=== PATIENT | female | born 1945 | race Caucasian/White ===

== ENCOUNTER 2022-03-21 07:08 | Emergency (ER) | payer MEDICARE, OTHER ==
[~2022-03-21] VITALS: Ht 165.1 cm; Wt 120.2 kg
[2022-03-21 08:14] LABS: Basophils # (auto) 0 10 ^3/uL (0-0.2); Basophils % (auto) 0.7 % (0.0-2.0); Eosinophils # (auto) 0.1 10 ^3/uL (0-0.8); Eosinophils % (auto) 3.5 % (0.0-7.0); Hemoglobin 16.1 g/dL (12.2-16.2); Lymphocytes # (auto) 1.1 10 ^3/uL (0.4-5.4); Lymphocytes % (auto) 36.4 % (10.0-50.0); Mean Corpuscular Hgb Conc. 34.1 g/dL (32.0-36.0); Monocytes # (auto) 0.4 10 ^3/uL (0-1.3); Monocytes % (auto) 14.3 % (0.0-12.0); Neutrophils # (auto) 1.3 10 ^3/uL (1.6-8.6); Neutrophils % (auto) 45.1 % (37.0-80.0); Nucleated Red Blood Cells % 0.3 %; Red Blood Cells 5.35 10^6/uL (4.0-5.20); Red Cell Distribution Width 13.9 % (11.8-14.3)
[2022-03-21 08:24] LABS: Urine Bacteria NONE SEEN /hpf (None Seen); Urine Blood Negative /uL (Negative); Urine Mucus FEW (None Seen); Urine Specific Gravity 1.025 (1.001-1.035); Urine WBC 14 /hpf (0 - 5)
[2022-03-21 08:28] LABS: Potassium 4.1 mmol/L (3.5-5.1)
[2022-03-21 08:36] LABS: Albumin 3.3 g/dL (3.4-5.0); BUN/Creatinine Ratio 17.6; Bilirubin, Total 0.6 mg/dL (0.2-1.0); Calcium 8.8 mg/dL (8.5-10.1)
[2022-03-21 10:08] VITALS: BP 128/77
== END 2022-03-21 11:18 | disposition left against medical advice (07) ==
LOC: ER 07:08
DX: R19.7 Diarrhea, unspecified (principal); Z53.21 Procedure and treatment not carried out due to patient leaving prior to being seen by health care provider
CPT/HCPCS: 36415; 80053; 81001; 85025

== ENCOUNTER 2023-11-07 06:00 | Inpatient (IN) | payer MEDICARE, OTHER ==
[2023-11-05 07:36] LABS: Urine Epithelial Cast None Seen /hpf (<5)
[2023-11-05 07:39] LABS: Basophils # (auto) 0.1 10 ^3/uL (0-0.2); Eosinophils # (auto) 0.3 10 ^3/uL (0-0.8); Eosinophils % (auto) 4.5 % (0.0-7.0); Hematocrit 48.4 % (36.0-46.0); Lymphocytes # (auto) 2.3 10 ^3/uL (0.4-5.4); Lymphocytes % (auto) 35.1 % (10.0-50.0); Mean Corpuscular Hemoglobin 30.4 pg (28.0-32.0); Mean Corpuscular Hgb Conc. 33.1 g/dL (32.0-36.0); Mean Corpuscular Volume 91.8 fL (80.0-100.0); Monocytes # (auto) 0.6 10 ^3/uL (0-1.3); Monocytes % (auto) 8.4 % (0.0-12.0); Neutrophils # (auto) 3.4 10 ^3/uL (1.6-8.6); Red Blood Cells 5.28 10^6/uL (4.0-5.20); Red Cell Distribution Width 14.1 % (11.8-14.3); White Blood Cell 6.7 10^3/uL (4.4-10.8)
[2023-11-05 07:43] LABS: Urine Bacteria FEW /hpf (None Seen); Urine Blood TRACE /uL (Negative); Urine Clarity Clear (Clear); Urine Color Yellow (Yellow); Urine Mucus FEW (None Seen); Urine Protein, UAD Negative (Negative); Urine Specific Gravity 1.024 (1.001-1.035); Urine Urobilinogen Normal (Negative); Urine WBC 4 /hpf (0 - 5)
[2023-11-05 08:09] LABS: INR 1.01 (0.9-1.15); Partial Thromboplastin Time 29.3 SEC (24.5-34.5); Prothrombin Time 10.6 sec (9.3-11.8)
[2023-11-05 08:20] LABS: Alanine Aminotransferase 10 U/L (7-40); Albumin 4.5 g/dL (3.2-4.8); Alkaline Phosphatase 92 U/L (46-116); Anion Gap 7 (5-15); Aspartate Aminotransferase 14 U/L (13-40); BUN/Creatinine Ratio 13.6 (10.0-20.0); Blood Urea Nitrogen 11 mg/dL (9-23); Calcium 9.6 mg/dL (8.5-10.1); Carbon Dioxide 27 mmol/L (20-30); Chloride 107 mmol/L (98-107); Glucose 92 mg/dL (74-106); Potassium 4.2 mmol/L (3.5-5.1); Sodium 141 mmol/L (136-145)
[2023-11-05 08:21] LABS: Bilirubin, Total 0.4 mg/dL (0.2-1.0); Total Protein 6.9 g/dL (5.7-8.2)
[~2023-11-07] VITALS: Ht 167.6 cm; Wt 203.1 kg
[~2023-11-07 06:00] MED LIST: ACET-1080 PO; DIPH1TAB30 PO; HYDR-4795 PO
[2023-11-07] MEDS ORDERED: TRANEXAMIC ACID 20 ML ONE ×2 (06:22→06:33)
[2023-11-07] MEDS ORDERED: LIDOCAINE W/ EPINEPHRINE 1% 20ML VIAL ONE (06:22)
[2023-11-07] MEDS ORDERED: LIDOCAINE 2% JELLY 11ml (GLYDO) ONE (06:28)
[2023-11-07] MEDS ORDERED: GABAPENTIN 400 MG CAP PO ONE (06:30)
[2023-11-07] MEDS ORDERED: oxyCODONE ER 20 MG TAB PO ONE (06:30)
[2023-11-07] MEDS ORDERED: ACETAMINOPHEN IV 1000 MG/100ML (10MG/ML) IV ONE (06:30)
[2023-11-07] MEDS ORDERED: MAGNESIUM SULFATE 1GM/100ML 100 ML IV ONE (06:33)
[2023-11-07] MEDS ORDERED: LIDOCAINE 4MG/ML IV SOLN 500 ML IV ONE (06:33)
[2023-11-07] MEDS ORDERED: PROPOFOL 10 MG/ML 20 ML IV ONE ×2 (06:42→09:39)
[2023-11-07] MEDS ORDERED: ROCURONIUM 10MG/ML 10ML VIAL IV ONE (06:42)
[2023-11-07] MEDS ORDERED: DexAMETHasone SOD PHOS 10MG/1ML VIAL INJ ONE (06:42)
[2023-11-07] MEDS ORDERED: ONDANSETRON HCL 4 MG/2 ML VIAL ONE (06:42)
[2023-11-07] MEDS ORDERED: GLYCOPYRROLATE 0.2 MG/ML 1ML VIAL ONE (06:42)
[2023-11-07] MEDS ORDERED: ACETAMINOPHEN IV 100 ML IV ONE (06:50)
[2023-11-07] MEDS ORDERED: ceFAZolin 2 GM/D5W100ml 100 ML IV ONE (06:50)
[2023-11-07] MEDS ORDERED: KETAMINE 50mg/ML 1ml syringe ONE (06:51)
[2023-11-07] MEDS ORDERED: LIDOCAINE 2%HCL (LOCAL ANESTH.) INJ 10ml MDV ONE (06:52)
[2023-11-07] MEDS ORDERED: ePHEDrine SULFATE 50 MG/ML AMP ONE (08:21)
[2023-11-07] MEDS ORDERED: LABETALOL HCL 5 MG/ML ML 20ML VIAL IV ONE (08:48)
[2023-11-07] MEDS ORDERED: fentaNYL CITRATE 100 MCG/2 ML VL ONE (08:59)
[2023-11-07 10:37] VITALS: RESP 17; O2SAT 97
[2023-11-07] MEDS ORDERED: MORPHINE SULFATE INJ 2 MG/ml SYRG IV PRN (10:45)
[2023-11-07] MEDS ORDERED: oxyCODONE HCL 5MG TAB PO PRN (10:45)
[2023-11-07] MEDS ORDERED: ePHEDrine SULFATE 50 MG/ML AMP IV PRN (10:45)
[2023-11-07] MEDS ORDERED: hydrALAZINE HCL 20 MG/ML VL IV PRN (10:45)
[2023-11-07] MEDS: D5W/SOD CHLO 0.9% 1,000 ML IV SCH ×3 (10:45→13:27)
[2023-11-07] MEDS ORDERED: ceFAZolin 1GM/50ML 50 ML IV SCH (10:45)
[2023-11-07] MEDS ORDERED: fentaNYL CITRATE 100 MCG/2 ML VL IV PRN (10:45)
[2023-11-07] MEDS ORDERED: ONDANSETRON HCL 4 MG/2 ML VIAL IV PRN ×2 (10:45)
[2023-11-07] MEDS ORDERED: LABETALOL HCL 5 MG/ML 4ML SYRINGE IV PRN (10:45)
[2023-11-07] MEDS ORDERED: NITROGLYCERIN 0.4 MG SL TAB SL PRN (10:45)
[2023-11-07] MEDS ORDERED: NALOXONE HCL 0.4 MG/ML VIAL IV PRN (10:45)
[2023-11-07] MEDS ORDERED: FLUMAZENIL 0.1 MG/ML INJ 10ML MDV IV PRN (10:45)
[2023-11-07] MEDS: HYDROmorphone HCL 2 MG/ML VL/or syr IV PRN ×3 (11:09→11:29)
[2023-11-07] MEDS: CYCLOBENZAPRINE HCL 10 MG TAB PO SCH ×3 (11:19→21:44)
[2023-11-07 14:47] VITALS: O2SAT 97
[2023-11-07] MEDS: MORPHINE SULFATE INJ 2 MG/ml SYRG IV PRN ×2 (15:04→20:20)
[2023-11-07] MEDS: ceFAZolin 1GM/50ML 50 ML IV SCH ×2 (15:30→21:46)
[2023-11-07 17:05] VITALS: BP 97/54; PULSE 75; RESP 18; TEMP 97.5; O2SAT 90
[2023-11-07] MEDS: HYDROcodone-ACET 10/325MG TAB PO PRN (17:56)
[2023-11-07 20:00] VITALS: PULSE 74
[2023-11-07] MEDS: DOCUSATE SOD 100 MG CAP PO SCH (21:44)
[2023-11-07] MEDS: ACETAMINOPHEN 325 MG TAB PO PRN (21:53)
[2023-11-07 22:00] VITALS: BP 115/66; PULSE 75; RESP 19; TEMP 98.3; O2SAT 94
[2023-11-08] VITALS (7 sets, daily range): BP systolic 98–111; BP diastolic 41–56; PULSE 63–80; RESP 18–20; TEMP 97.3–98.2; O2SAT 96–100
[2023-11-08] MEDS: ceFAZolin 1GM/50ML 50 ML IV SCH ×4 (05:08→22:00)
[2023-11-08] MEDS: CYCLOBENZAPRINE HCL 10 MG TAB PO SCH ×3 (05:08→21:35)
[2023-11-08] MEDS: MORPHINE SULFATE INJ 2 MG/ml SYRG IV PRN ×4 (05:59→22:54)
[2023-11-08] MEDS: HYDROcodone-ACET 10/325MG TAB PO PRN ×2 (07:38→16:19)
[2023-11-08] MEDS: ACETAMINOPHEN 325 MG TAB PO PRN ×2 (09:48→18:08)
[2023-11-08] MEDS: D5W/SOD CHLO 0.9% 1,000 ML IV SCH (09:50)
[2023-11-08] MEDS: DOCUSATE SOD 100 MG CAP PO SCH ×2 (09:52→21:35)
[2023-11-09] VITALS (7 sets, daily range): BP systolic 106–148; BP diastolic 46–78; PULSE 68–97; RESP 16–20; TEMP 97.5–99.6; O2SAT 91–96
[2023-11-09] MEDS: HYDROcodone-ACET 10/325MG TAB PO PRN (01:52)
[2023-11-09] MEDS: D5W/SOD CHLO 0.9% 1,000 ML IV SCH ×3 (02:45→22:45)
[2023-11-09] MEDS: MORPHINE SULFATE INJ 2 MG/ml SYRG IV PRN ×5 (03:38→21:26)
[2023-11-09] MEDS: ceFAZolin 1GM/50ML 50 ML IV SCH ×3 (06:10→21:25)
[2023-11-09] MEDS: CYCLOBENZAPRINE HCL 10 MG TAB PO SCH ×3 (06:10→21:25)
[2023-11-09 07:26] LABS: Basophils # (auto) 0 10 ^3/uL (0-0.2); Basophils % (auto) 0.5 % (0.0-2.0); Eosinophils # (auto) 0.2 10 ^3/uL (0-0.8); Eosinophils % (auto) 2.8 % (0.0-7.0); Hematocrit 37.3 % (36.0-46.0); Hemoglobin 12.2 g/dL (12.2-16.2); Lymphocytes # (auto) 2.3 10 ^3/uL (0.4-5.4); Lymphocytes % (auto) 27.1 % (10.0-50.0); Mean Corpuscular Hemoglobin 30.2 pg (28.0-32.0); Mean Corpuscular Hgb Conc. 32.8 g/dL (32.0-36.0); Mean Corpuscular Volume 92.3 fL (80.0-100.0); Monocytes # (auto) 0.8 10 ^3/uL (0-1.3); Monocytes % (auto) 8.9 % (0.0-12.0); Neutrophils # (auto) 5.2 10 ^3/uL (1.6-8.6); Neutrophils % (auto) 60.7 % (37.0-80.0); Red Blood Cells 4.04 10^6/uL (4.0-5.20); Red Cell Distribution Width 14.1 % (11.8-14.3); White Blood Cell 8.6 10^3/uL (4.4-10.8)
[2023-11-09 08:17] LABS: Calcium 8.8 mg/dL (8.5-10.1); Chloride 107 mmol/L (98-107); Potassium 3.9 mmol/L (3.5-5.1); Sodium 141 mmol/L (136-145)
[2023-11-09 08:18] LABS: Anion Gap 6 (5-15); Carbon Dioxide 28 mmol/L (20-30)
[2023-11-09 08:24] LABS: BUN/Creatinine Ratio 17.6 (10.0-20.0); Blood Urea Nitrogen 13 mg/dL (9-23); Glucose 87 mg/dL (74-106)
[2023-11-09] MEDS: DOCUSATE SOD 100 MG CAP PO SCH ×2 (09:20→21:25)
[2023-11-09] MEDS ORDERED: LIDOCAINE 2% JELLY 11ml (GLYDO) UR ONE ×2 (13:30→14:00)
[2023-11-10] VITALS (7 sets, daily range): BP systolic 95–129; BP diastolic 42–72; PULSE 58–99; RESP 16–20; TEMP 97.7–98.7; O2SAT 91–98
[2023-11-10] MEDS: MORPHINE SULFATE INJ 2 MG/ml SYRG IV PRN ×5 (01:22→21:46)
[2023-11-10] MEDS: CYCLOBENZAPRINE HCL 10 MG TAB PO SCH ×3 (05:29→21:45)
[2023-11-10] MEDS: ceFAZolin 1GM/50ML 50 ML IV SCH ×3 (05:31→21:45)
[2023-11-10] MEDS: D5W/SOD CHLO 0.9% 1,000 ML IV SCH ×2 (08:45→18:45)
[2023-11-10] MEDS: DOCUSATE SOD 100 MG CAP PO SCH ×2 (10:09→21:45)
[2023-11-10] MEDS ORDERED: LACTULOSE 20Gm/30ML SOLN PO ONE (19:30)
[2023-11-11 05:00] VITALS: BP 115/65; PULSE 87; RESP 20; TEMP 98; O2SAT 92
[2023-11-11] MEDS: ceFAZolin 1GM/50ML 50 ML IV SCH ×3 (05:23→23:28)
[2023-11-11] MEDS: CYCLOBENZAPRINE HCL 10 MG TAB PO SCH (05:23)
[2023-11-11] MEDS: D5W/SOD CHLO 0.9% 1,000 ML IV SCH (06:27)
[2023-11-11] MEDS: MORPHINE SULFATE INJ 2 MG/ml SYRG IV PRN (07:11)
[2023-11-11 08:00] VITALS: BP 106/61; PULSE 81; PULSE 82; RESP 19; TEMP 97.4; O2SAT 93
[2023-11-11] MEDS: DOCUSATE SOD 100 MG CAP PO SCH ×2 (09:12→23:29)
[2023-11-11 11:00] VITALS: BP 106/61; PULSE 81; RESP 19; TEMP 97.4; O2SAT 93
[2023-11-11] MEDS: HYDROcodone-ACET 10/325MG TAB PO PRN ×2 (12:52→18:52)
[2023-11-11 20:00] VITALS: PULSE 74; RESP 18; TEMP 36.3; O2SAT 96
[2023-11-11 22:00] VITALS: BP 112/93; PULSE 86; RESP 18; TEMP 98; O2SAT 92
[2023-11-12] MEDS: ACETAMINOPHEN 325 MG TAB PO PRN ×2 (02:29→13:37)
[2023-11-12 05:30] VITALS: BP 105/63; PULSE 80; RESP 20; TEMP 98.7; O2SAT 92
[2023-11-12] MEDS: ceFAZolin 1GM/50ML 50 ML IV SCH ×2 (06:19→14:00)
[2023-11-12 08:00] VITALS: BP 114/53; PULSE 76; RESP 20; TEMP 97.9; O2SAT 94
[2023-11-12 09:00] VITALS: BP 114/57; PULSE 76; RESP 20; TEMP 97.9; O2SAT 94
[2023-11-12] MEDS: DOCUSATE SOD 100 MG CAP PO SCH (09:29)
[2023-11-12] MEDS: HYDROcodone-ACET 10/325MG TAB PO PRN (09:29)
[2023-11-12] MEDS ORDERED: HYDROcodone-ACET 7.5/325MG TAB PO SCH (12:30)
[2023-11-12 13:39] VITALS: BP 107/76; PULSE 78; RESP 20; TEMP 98.2; O2SAT 90
[2023-11-12 15:56] VITALS: BP 107/76; PULSE 78; RESP 20; TEMP 98.2; O2SAT 94
[2023-11-12 16:52] VITALS: BP 122/64; PULSE 72; RESP 20; TEMP 98.5; O2SAT 91
== END 2023-11-12 16:41 | disposition home health service (06) | DRG 457 ==
LOC: SUR 06:00 → TELE 10:43 → TELE-WESTW 14:47 → WEST WING 11-11 23:44
PROVIDERS: ADMIT Orthopaedic Surgery; ATTEND Internal Medicine
PROC: 00NY0ZZ Release Lumbar Spinal Cord, Open Approach (ICD-10-PCS; principal; 2023-11-11)
PROC: 01NB0ZZ Release Lumbar Nerve, Open Approach (ICD-10-PCS; 2023-11-11)
PROC: 0SG1071 Fusion of 2 or more Lumbar Vertebral Joints with Autologous Tissue Substitute, Posterior Approach, Posterior Column, Open Approach (ICD-10-PCS; 2023-11-11)
PROC: 4A11X4G Monitoring of Peripheral Nervous Electrical Activity, Intraoperative, External Approach (ICD-10-PCS; 2023-11-11)
DX: M48.062 Spinal stenosis, lumbar region with neurogenic claudication (principal); Z68.45 Body mass index [BMI] 70 or greater, adult; M41.56 Other secondary scoliosis, lumbar region; E66.9 Obesity, unspecified; M51.16 Intervertebral disc disorders with radiculopathy, lumbar region; M47.26 Other spondylosis with radiculopathy, lumbar region
CPT/HCPCS: 36415; 72100; 76000; 80048; 80053; 81001; 85025; 85610; 85730; 86850; 86900; 86901; 97110; 97116; 97163; 97530; G0378; J0131; J1100; J2001; J2405; J2704; J7042